=== PATIENT | female | born 1990 | race Caucasian/White ===

== ENCOUNTER 2020-10-21 11:21 | Emergency (ER) | payer SELFPAY ==
[2020-10-21 11:30] VITALS: BP 150/92; PULSE 97; RESP 16; TEMP 36.4; O2SAT 98
--- NOTE | 2020-10-21 13:19 | ED.ABDPAIN ---
HPI - Abdominal Pain General Chief Complaint: Skin/Abscess/Foreign Body Stated Complaint: Have something stuck in butt Source: patient Mode of arrival: ambulatory Limitations: no limitations History of Present Illness HPI narrative: Patient comes in with butt plug stuck in her rectum. She says she was going to use it and sat down and it went all of the way inside her. She comes in because she could not get this out at home. This happened just about 20 minutes prior to arrival. She now complains of severe pain in her rectum. Pain Consistency: constant Severity: severe (sharp pain) Quality: sharp Radiation: none Migration to: no migration Exacerbating factors: movement Relieving factors: nothing Associated symptoms: denies other symptoms Treatments prior to arrival: other (attempting to pull it out) Related Data Home Medications Medication Instructions Recorded Confirmed No Home Medications 10/21/20 10/21/20 Allergies Allergy/AdvReac Type Severity Reaction Status Date / Time cephalexin [From Keflex] Allergy Hives Verified 10/21/20 11:43 Review of Systems Constitutional: Constitutional: Reports no additional constitutional complaints Eyes: Eyes: Reports no additional eye complaints ENT: Reports system reviewed and no additional complaints, except as documented Cardiovascular: Cardiovascular: Reports no additional cardiovascular complaints Respiratory: Respiratory: Reports no additional respiratory complaints Gastrointestinal: Gastrointestinal: Reports no additional gastrointestinal complaints Genitourinary: Genitourinary: Reports no additional female genitourinary complaints Musculoskeletal: Musculoskeletal: Reports no additional musculoskeletal complaints Integumentary/Breasts: Skin/Breast: Reports system reviewed and no additional complaints, except as docu Neurologic: Reports system reviewed and no additional complaints, except as documented Psychiatric: Psychiatric: Reports no additional psychiatric complaints Endocrine: Endocrine: Reports no additional endocrine complaints Hematologic/Lymphatic: Hematologic/Lymphatic: Reports no additional hematologic/lymphatic complaints Allergic/Immunologic: Allergic/Immunologic: Reports no additional allergic/immunologic complaints ON LICENSE OF [facility] Past Medical History Medical History (Updated 10/22/20 @ 04:12 by Hamzah Goncalves MD) No significant past medical history Surgical History Surgical History (Updated 10/22/20 @ 03:49 by Hamzah Goncalves MD) No significant past surgical history Social History Social History (Updated 10/22/20 @ 03:51 by Hamzah Goncalves MD) Living arrangements: with friend(s) Gender identity (if verbalized by the patient): Female Sexual Orientation (if Verbalized by the Patient): Straight or Heterosexual Exam Const: Orientation/consciousness: patient oriented x3 HENMT: Head: normal to inspection Eyes: Conjunctivae: conjunctivae normal Neck: Neck: normal visual inspection Chest: Chest palpation & inspection: normal inspection of the chest Resp: Effort & Inspection: normal respiratory effort Cardio: Rate: regular rate Rhythm: regular rhythm GI: GI Palp: Yes Soft to palpation (nontender, she has butt plug present in anus. ) Skin: General skin exam: normal color Extrem: General: normal to inspection Psych: Appearance: grossly normal and well kempt Affect: normal affect Thought content: Yes Normal thought content present Course Course Emergency Course: Patient was placed in room number 3 by RN. She was given lidocaine jelly rectally 200mg. An attempt was made to remove the plug by grabbing it, after it appeared the lidocaine jelly was helping her to relax. I offered Versed IV to help her relax. She decided she was going to leave AMA, but then went in the bathroom to try to expel the plug. The RN was able to assist her, and the plug was removed. Vital Signs Vital signs: Vital Signs Temperature 36
[2020-10-21 14:15] VITALS: BP 140/80; PULSE 95; RESP 20; TEMP 36.7; O2SAT 100
--- NOTE | 2020-10-21 15:16 | PC.NURSE ---
1345 pt refused to lie in bed anymore pt went to BR to try and dislodge the anal plug 1400 pt call for nurse 1401 Dr Goncalves states nurse could assist pt on getting butt plug out 1405 butt plug at the anus and pt pushed and nurse pulled plug out
== END 2020-10-21 14:15 | disposition home or self-care (01) ==
LOC: CHSED 11:24
PROVIDERS: Emergency Provider Emergency Medicine
DX: T18.5XXA Foreign body in anus and rectum, initial encounter (principal)
CPT/HCPCS: 99282

== ENCOUNTER 2022-05-17 11:17 | Emergency (ER) | payer BC, SELFPAY ==
--- NOTE | ~2022-05-17 | XR_ITS ---
EXAMINATION: XR chest 1V portable INDICATION: Cough and shortness of breath TECHNIQUE: Portable AP chest at 1201 hours COMPARISON: None available FINDINGS: The lungs are free of acute opacities. No pleural effusion or pneumothorax. The cardiomedia stinal silhouette is normal. The visualized bones and soft tissues are unremarkable. IMPRESSION: 1. No acute cardiopulmonary abnormality. Reviewed, dictated and finalized at location A.
[2022-05-17 11:20] VITALS: BP 108/65; PULSE 70; RESP 16; TEMP 36.3; O2SAT 100
--- NOTE | 2022-05-17 12:07 | PC.NURSE ---
PT REFUSED ABG, ERP IS AWARE.
[2022-05-17 12:09] LABS: Basophils Absolute Auto 0.05 K/mm3 (0.00-0.10); Basophils Percent Auto 0.6 % (0.0-1.0); Eosinophils Absolute Auto 0.17 K/mm3 (0.02-0.50); Eosinophils Percent Auto 2.1 % (1.0-6.0); Hematocrit 40.6 % (35.0-49.0); Hemoglobin 13.4 g/dL (12.0-15.0); Immature Granulocyte Absolute 0.04 K/mm3 (0.00-0.00); Immature Granulocyte Percent A 0.5 % (0.0-0.0); Lymphocytes Absolute Auto 1.54 K/mm3 (1.10-4.50); Lymphocytes Percent Auto 18.6 % (18.0-42.0); Mean Corpuscular Hemoglobin 31.9 pg (27.0-31.0); Mean Corpuscular Volume 96.7 fL (78.0-102.0); Mean Platelet Volume 9.2 fl (9.2-11.8); Monocytes Absolute Auto 0.63 K/mm3 (0.10-0.90); Monocytes Percent Auto 7.6 % (2.0-11.0); Neutrophils Absolute Auto 5.9 K/mm3 (1.7-7.2); Neutrophils Percent Auto 70.6 % (50.0-70.0); Platelet Count Result 285 K/mm3 (150-420); White Blood Count 8.3 K/mm3 (4.8-10.8)
[2022-05-17] MEDS: KETOROLAC 30 MG/ML VIAL (*BKC) IM (12:10)
--- NOTE | 2022-05-17 12:18 | ED.URI ---
HPI - URI/Sore Throat General Chief Complaint: Upper Respiratory Infection Stated Complaint: COUGH, CONGESTION, BACK PAIN Time Seen by Provider: 05/17/22 11:21 Source: patient and RN notes reviewed Mode of arrival: ambulatory Limitations: no limitations History of Present Illness MD elicited complaint: cough, sore throat and other (right scapula pain, chest congestion and mild SOB) Pertinent past history: pneumonia and COPD Onset (ago): day(s) (3) Consistency: constant and progressively worsening Severity: moderate Pain scale (0-10): 6 Able to tolerate fluids by mouth: Yes Exacerbating factors: nothing Relieving factors: nothing Associated symptoms: cough and shortness of breath Related Data Home Medications Medication Instructions Recorded Confirmed clonidine HCl 0.1 mg tablet 0.1 mg PO DAILY 05/17/22 05/17/22 fluoxetine 20 mg capsule 20 mg PO DAILY 05/17/22 05/17/22 olanzapine 5 mg tablet 5 mg PO DAILY 05/17/22 05/17/22 Allergies Allergy/AdvReac Type Severity Reaction Status Date / Time cephalexin [From Keflex] Allergy Hives Verified 05/17/22 12:38 Review of Systems Review of Systems: All systems reviewed & are unremarkable except as noted in HPI and below Constitutional: Constitutional: Reports no additional constitutional complaints Eyes: Eyes: Reports no additional eye complaints ENT: Reports system reviewed and no additional complaints, except as documented Cardiovascular: Cardiovascular: Reports no additional cardiovascular complaints Respiratory: Respiratory: Reports chest congestion and Reports dyspnea Gastrointestinal: Gastrointestinal: Reports no additional gastrointestinal complaints Genitourinary: Genitourinary: Reports no additional female genitourinary complaints Musculoskeletal: Musculoskeletal: Reports no additional musculoskeletal complaints Integumentary/Breasts: Skin/Breast: Reports system reviewed and no additional complaints, except as docu Neurologic: Reports system reviewed and no additional complaints, except as documented Psychiatric: Psychiatric: Reports no additional psychiatric complaints Endocrine: Endocrine: Reports no additional endocrine complaints Hematologic/Lymphatic: Hematologic/Lymphatic: Reports no additional hematologic/lymphatic complaints Allergic/Immunologic: Allergic/Immunologic: Reports no additional allergic/immunologic complaints PMFSH Past Medical History Medical History Bronchitis No significant past medical history Surgical History Surgical History No significant past surgical history Social History Social History Gender identity (if verbalized by the patient): Female Sexual Orientation (if Verbalized by the Patient): Straight or Heterosexual Exam Const: General: no acute distress, alert and well nourished Nutritional Appearance: well nourished Orientation/consciousness: patient oriented x3 Limitations: no limitations HENMT: Head: normal to inspection Ears: external ears normal, TM's normal bilaterally and EAC's normal Face/Nose/Sinus: Normal external nose present, Normal nares present, normal facial exam and sinuses nontender Face and sinus: normal facial exam and sinuses nontender Mouth: Yes Normal oral and palatal mucosa present and Yes moist mucous membranes Teeth and gingiva: dentition normal Throat: posterior oropharynx normal Eyes: Conjunctivae: conjunctivae normal Pupils: Equal, round and reactive pupils present EOM: EOMs intact bilaterally Neck: Neck: normal visual inspection, no lymphadenopathy and no meningeal signs Chest: Chest palpation & inspection: normal inspection of the chest and tenderness (of right upper, inner scapula tenderness) Resp: Effort & Inspection: normal respiratory effort Auscultation: rhonchi and wheezes Cardio: Rate: regular ra
[2022-05-17 12:21] LABS: Alanine Aminotransferase 42 U/L (14-59); Albumin Level 4.1 g/dL (3.4-5.0); Alkaline Phosphatase 62 U/L (46-116); Anion Gap 8 mmol/L (8-16); Aspartate Amino Transferase 18 U/L (15-37); Bilirubin,Total 0.4 mg/dL (0.00-1.00); Blood Urea Nitrogen 13 mg/dL (7-18); Calcium 8.8 mg/dL (8.5-10.1); Carbon Dioxide 27 mmol/L (21-32); Chloride 104 mmol/L (98-108); Estimated CRCL calculation 75 ml/min; Estimated Glomerular Filt Rate > 60; Glucose 70 mg/dL (70-99); Osmolality Calculated 286 mOsm/kg (285-295); Potassium 3.8 mmol/L (3.5-5.1); SPREG INTERNAL CONTROL Positive; Serum Qual hCG Negative; Sodium 139 mmol/L (136-145); Total Protein 7.8 g/dL (6.4-8.2)
[2022-05-17 12:27] LABS: Appearance Urine Clear (Clear); Bilirubin Urine Negative (Negative); Blood Urine Negative (Negative); Glucose Urine UA Negative (Negative); Ketones Urine Negative (Negative); Leukocyte Esterase Ur Negative (Negative); Nitrate Urine Negative (Negative); Protein Urine Negative (Negative); Specific Grav Ur 1.025 (1.010-1.020); Urobilinogen Urine 0.2 mg/dL (0.2-1.0)
[2022-05-17 12:32] LABS: Add Urine Microscopic? NO; Color Urine Light Yellow (Yellow)
[2022-05-17 12:44] LABS: Influenza A QL RT-PCR Negative (Negative); Influenza B QL RT-PCR Negative (Negative); SARS-CoV-2 RNA PCR Negative (Negative)
[2022-05-17 12:45] VITALS: BP 100/61; PULSE 78; RESP 16; O2SAT 99
== END 2022-05-17 12:45 | disposition home or self-care (01) ==
PROVIDERS: Emergency Provider Emergency Medicine
DX: J40 Bronchitis, not specified as acute or chronic (principal); Z20.822 Contact with and (suspected) exposure to COVID-19
CPT/HCPCS: 36415; 71045; 80053; 81003; 83605; 84703; 85025; 87502; 96372; 99283; C9803; J1885; U0003; U0005

== ENCOUNTER 2022-07-15 11:30 | Emergency (ER) | payer BC, SELFPAY ==
--- NOTE | ~2022-07-15 | XR_ITS ---
XR abdomen/kub 1V 07/15/2022 16:33 Indication: Foreign body in rectal vault Procedure: KUB Comparison: No prior studies for comparison. Findings: There is a foreign body overlying the pelvis. Bowel gas pattern nonobstructive. No abnormal calcifications. There is an umbilical piercing. Impression: 1: Foreign body in the pelvis. Reviewed, dictated and finalized at location A. PRESIDENT COMPLIANCE Impression: 1: Foreign body in the pelvis.
--- NOTE | 2022-07-15 14:00 | PC.NURSE ---
Addendum entered by Judah Sheikh RN 07/15/22 16:08: 1410 pt returned to [facility], was outside in parking lot. did not leave. Original Note: pt left without being seen, pt has butt plug in rectum. no distress. sitting in lobby, legs crossed, in and out of lobby to go outside. at 1200 explained to pt extended wait related to all rooms occupied. at 1350 pt in window states she is not waiting any longer, several people has left. attempted to explain to pt rooms are full and have had multiple ambulance arrivals. pt stormed out of lobby.
[2022-07-15 15:11] VITALS: BP 114/71; PULSE 89; RESP 16; TEMP 36.9; O2SAT 99
--- NOTE | 2022-07-15 15:31 | ED.GENADULT ---
HPI - General Adult General Chief complaint: Unspecified Stated complaint: ANAL BUTT PLUG STUCK History of Present Illness HPI narrative: The patient is a 32-year-old woman was otherwise healthy, who has had a previous episode of in anal butt plug stuck in the anorectal vault on October 21, 2020, that she was able to defecate spontaneously during a visit to this emergency room. No subsequent episodes where the butt plug had gotten stuck. She now presents with a recurrent episode of a butt plug stuck in her rectum, insertion at 11:15 a.m. today, size of the butt plug is 38 mm x 80 mm and has base. She cannot feel it in the anal or rectal region. No abdominal pain. Related Data Home Medications Medication Instructions Recorded Confirmed fluoxetine 20 mg capsule 20 mg PO DAILY 05/17/22 07/15/22 olanzapine 5 mg tablet 5 mg PO DAILY 05/17/22 07/15/22 bupropion HCl 150 mg 24 hr tablet, 150 mg PO DAILY 07/15/22 07/15/22 extended release Allergies Allergy/AdvReac Type Severity Reaction Status Date / Time cephalexin [From Keflex] Allergy Hives Verified 07/15/22 15:33 Review of Systems Review of Systems: All systems reviewed & are unremarkable except as noted in HPI and below Constitutional: Constitutional: Reports no additional constitutional complaints, Denies anorexia, Denies body ache(s), Denies chills, Denies excessive sweating, Denies fatigue, Denies fever(s), Denies frequent falls, Denies headache(s), Denies malaise and Denies poor appetite Eyes: Eyes: Reports no additional eye complaints, Denies blurry vision, Denies change in vision, Denies irritation, Denies itchy eyes and Denies photophobia ENT: Reports system reviewed and no additional complaints, except as documented, Reports Normal hearing present, Denies change in voice, Denies dysphagia, Denies vertigo, Denies dizziness, Denies ear discharge, Denies headache(s), Denies hearing loss, Denies hoarseness, Denies nasal congestion, Denies neck pain, Denies sinus pressure, Denies sore throat and Denies throat swelling Cardiovascular: Cardiovascular: Reports no additional cardiovascular complaints, Denies chest pain, Denies syncope, Denies rapid heart rate, Denies irregular heart rhythm, Denies leg edema, Denies dyspnea and Denies slow heart rate Respiratory: Respiratory: Reports no additional respiratory complaints, Denies cough, Denies dyspnea, Denies stridor and Denies wheezing Gastrointestinal: Gastrointestinal: Reports no additional gastrointestinal complaints, Denies abdominal pain, Denies melena, Denies hematochezia, Denies dysphagia, Denies diarrhea, Denies nausea and Denies vomiting Genitourinary: Genitourinary: Denies hematuria, Denies urinary frequency, Denies dysuria, Denies flank pain and Denies urinary urgency Musculoskeletal: Musculoskeletal: Reports no additional musculoskeletal complaints, Denies abnormal gait, Denies back pain, Denies myalgias, Denies arthralgias, Denies joint swelling, Denies limited range of motion, Denies muscle cramps, Denies muscle weakness, Denies neck pain and Denies numbness Integumentary/Breasts: Skin/Breast: Reports system reviewed and no additional complaints, except as docu, Denies breast pain, Denies change in pigmentation, Denies pruritus, Denies erythema and Denies wounds Neurologic: Reports system reviewed and no additional complaints, except as documented, Reports Normal hearing present, Denies Abnormal speech present, Denies abnormal gait, Denies confusion, Denies vertigo, Denies dizziness, Denies syncope, Denies frequent falls, Denies headache(s), Denies focal weakness, Denies numbness and Denies paresthesias Psychiatric: Psychiatric: Reports no additional psychiatric complaints and Denies confusion Endocrine: Endocrine: Reports no additional endocrine complaints, Denies cold intolerance, Denies excessive sweating, Denies fatigue and Denies heat intolerance Hematologic/Lymphatic: Hematologic/Lymphatic: Reports no additional h
[2022-07-15] MEDS: NICOTINE (*PBKC) 14 MG PATCH 1 PATCH TRANSDERM (16:05)
[2022-07-15 16:11] LABS: Basophils Absolute Auto 0.06 K/mm3 (0.00-0.10); Basophils Percent Auto 0.7 % (0.0-1.0); Eosinophils Absolute Auto 0.48 K/mm3 (0.02-0.50); Eosinophils Percent Auto 5.5 % (1.0-6.0); Hematocrit 39.1 % (35.0-49.0); Hemoglobin 13.1 g/dL (12.0-15.0); Immature Granulocyte Absolute 0.02 K/mm3 (0.00-0.00); Immature Granulocyte Percent A 0.2 % (0.0-0.0); Lymphocytes Absolute Auto 2.41 K/mm3 (1.10-4.50); Lymphocytes Percent Auto 27.6 % (18.0-42.0); Mean Corpuscular HGB Conc 33.5 g/dL (32.0-36.0); Mean Corpuscular Hemoglobin 32.2 pg (27.0-31.0); Mean Corpuscular Volume 96.1 fL (78.0-102.0); Mean Platelet Volume 8.6 fl (9.2-11.8); Monocytes Absolute Auto 0.68 K/mm3 (0.10-0.90); Monocytes Percent Auto 7.8 % (2.0-11.0); Neutrophils Absolute Auto 5.1 K/mm3 (1.7-7.2); Neutrophils Percent Auto 58.2 % (50.0-70.0); Platelet Count Result 280 K/mm3 (150-420); Red Blood Count 4.07 M/mm3 (4.20-5.40); Red Cell Distribution Width 13.5 % (11.6-14.4); White Blood Count 8.7 K/mm3 (4.8-10.8)
[2022-07-15 16:17] LABS: Appearance Urine Clear (Clear); Bilirubin Urine Negative (Negative); Blood Urine 1+ (Negative); Glucose Urine UA Negative (Negative); Ketones Urine Negative (Negative); Leukocyte Esterase Ur Negative LEU/UL (Negative); Nitrate Urine Negative (Negative); Protein Urine Negative (Negative); Urobilinogen Urine 0.2 mg/dL (0.2-1.0)
[2022-07-15 16:20] LABS: Pregnancy On Board Control Positive; Urine Pregnancy Test Negative
[2022-07-15 16:24] LABS: Add Urine Microscopic? YES; Bacteria Urine 1+ /hpf; Color Urine Light Yellow (Yellow); RBC Urine 0-2 /hpf (0-2); Squamous Epithelial Cell Urine Few /hpf (Few); WBC Urine 0-3 /hpf (0-3)
[2022-07-15 16:27] LABS: Alanine Aminotransferase 11 U/L (14-59); Albumin Level 3.9 g/dL (3.4-5.0); Alkaline Phosphatase 65 U/L (46-116); Anion Gap 7 mmol/L (8-16); Aspartate Amino Transferase < 10 U/L (15-37); Bilirubin,Total 0.3 mg/dL (0.00-1.00); Blood Urea Nitrogen 12 mg/dL (7-18); Calcium 9.2 mg/dL (8.5-10.1); Carbon Dioxide 28 mmol/L (21-32); Chloride 106 mmol/L (98-108); Estimated CRCL calculation 59 ml/min; Estimated Glomerular Filt Rate > 60; Glucose 126 mg/dL (70-99); Osmolality Calculated 293 mOsm/kg (285-295); Potassium 4.5 mmol/L (3.5-5.1); Sodium 141 mmol/L (136-145); Total Protein 7.8 g/dL (6.4-8.2)
[2022-07-15 16:46] LABS: SARS-CoV-2 RNA PCR Negative (Negative)
[2022-07-15 16:53] VITALS: BP 113/76; PULSE 87; RESP 18; TEMP 36.8; O2SAT 99
== END 2022-07-15 16:59 | disposition short-term general hospital (02) ==
PROVIDERS: Emergency Provider Emergency Medicine
DX: T18.5XXA Foreign body in anus and rectum, initial encounter (principal); Z20.822 Contact with and (suspected) exposure to COVID-19
CPT/HCPCS: 36415; 74018; 80053; 81001; 81025; 85025; 99284; A9270; U0003; U0005

== ENCOUNTER 2024-01-25 09:44 | Outpatient (CLI) | payer OTHER, SELFPAY ==
--- NOTE | ~2024-01-25 | XR_ITS ---
XR wrist RT 2V Ordering provider: Barbara Cueto APRN History: . Right wrist pain, limited motion, no known injury . Comparison: August 08, 2018 FINDINGS: BONES: No acute fracture or dislocation. No definite scaphoid fracture. JOINT SPACES: Normal. SOFT TISSUES: Normal. IMPRESSION: No acute osseous abnormality right wrist. Reviewed, dictated and finalized at location A.
[2024-01-25 19:51] LABS: Alanine Aminotransferase 13 U/L (6-35); Albumin Level 4.6 g/dL (3.5-5.1); Alkaline Phosphatase 55 U/L (38-126); Anion Gap 11 mmol/L (4-12); Aspartate Amino Transferase 71 U/L (14-36); Bilirubin,Total 0.6 mg/dL (0.2-1.3); Blood Urea Nitrogen 16 mg/dL (7-17); Calcium 9.2 mg/dL (8.4-10.2); Carbon Dioxide 20 mmol/L (22-30); Chloride 106 mmol/L (98-107); Cholesterol 147 mg/dL (0-200); Estimated Glomerular Filt Rate > 60; Glucose 100 mg/dL (65-110); HDL Direct 43 mg/dL; Sodium 137 mmol/L (137-145); Triglycerides 59 mg/dL (<150); Uric Acid 4.1 mg/dL (2.5-7.5)
[2024-01-25 19:53] LABS: Hematocrit 41.2 % (37.0-47.0); Hemoglobin 13.2 g/dL (12.0-15.0); Mean Corpuscular Hemoglobin 33.2 pg (26-34); Mean Corpuscular Volume 103.8 fl (80-100); Mean Platelet Volume 10.1 fl (7.4-10.4); Platelet Count Result 231 k/mm3 (150-375); Red Blood Count 3.97 M/mm3 (4.2-5.4); Red Cell Distribution Width 12.4 % (11.5-14.5); White Blood Count 7.3 K/mm3 (4.5-10.0)
[2024-01-25 20:02] LABS: LDL Cholesterol Direct 91 mg/dL
[2024-01-25 20:09] LABS: Iron 68 ug/dL (37-170)
[2024-01-25 20:11] LABS: Percent Iron Saturation 20 % (20-50)
[2024-01-25 20:31] LABS: Free T4 Free Thyroxine 1.22 ng/mL (0.78-2.19)
[2024-01-25 20:39] LABS: Vitamin D 25 Hydroxy 29.5 ng/mL
[2024-01-25 20:56] LABS: Folic Acid 4.6 ng/mL (2.76->20)
== END 2024-01-25 09:45 | disposition home or self-care (01) ==
PROVIDERS: PCP Nurse Practitioner Adult Health; Visit Provider Nurse Practitioner Adult Health
DX: Z13.9 Encounter for screening, unspecified (principal); F32.A Depression, unspecified; M25.531 Pain in right wrist
CPT/HCPCS: 36415; 73100; 80053; 80061; 82306; 82607; 82728; 82746; 83540; 83550; 84439; 84443; 84550; 85027

== ENCOUNTER 2024-02-20 07:31 | Outpatient (CLI) | payer OTHER, SELFPAY ==
--- NOTE | ~2024-02-20 | MMUS_ITS ---
EXAMINATION: MM diagnostic radha BI w christy, US breast BI complete HISTORY: Palpable bilateral breast abnormalities TECHNIQUE: Additional 3-D tomosynthesis images of the breasts were performed and synthetic 2-D images were generated. CAD analysis was submitted and interpreted. High resolution bilateral complete breas t ultrasound was performed. COMPARISON: No prior studies for comparison. BREAST PARENCHYMAL COMPOSITION: Dense: The breasts are extremely dense, which lowers the sensitivity of mammography. FINDINGS: MAMMOGRAPHIC FINDINGS: There are subtle masses bilaterally which are obscured by dense fibroglandular tissue. No discrete ab normality in the areas of palpable concern are identified. There are no suspicious calcifications or architectural distortion. ULTRASOUND: Complete bilateral US of all 4 quadrants of the breasts and retroareolar region was reviewed. There a re multiple bilateral cysts in both breasts which appear simple. There are no suspicious masses in ei ther breast to suggest malignancy. IMPRESSION: 1. No evidence for malignancy in either breast. Benign cysts are identified in both breasts. 2. Routine yearly screening mammogram and regular clinical breast examination are recommended. BI-RADS Category 2: Benign finding(s). Reviewed, dictated and finalized at location B. IMPRESSION: 1. No evidence for malignancy in either breast. Benign cysts are identified in both breasts. 2. Routine yearly screening mammogram and regular clinical breast examination a re recommended. BI-RADS Category 2: Benign finding(s).
== END 2024-02-20 07:32 | disposition home or self-care (01) ==
LOC: CHSIMG 07:33
PROVIDERS: PCP Nurse Practitioner Adult Health; Visit Provider Nurse Practitioner Adult Health
DX: N63.11 Unspecified lump in the right breast, upper outer quadrant (principal)
CPT/HCPCS: 76641; 77062; 77066; G0279

== ENCOUNTER 2024-04-22 11:50 | Outpatient (CLI) | payer OTHER, SELFPAY ==
--- NOTE | ~2024-04-22 | XR_ITS ---
XR chest 2V Ordering provider: Barbara Cueto APRN History: 34 years Female with . R05.9 - Cough, unspecified . Comparison: May 17, 2022 FINDINGS: MEDIASTINUM: The cardiac silhouette is not enlarged. LUNGS: No infiltrates, effusions or pneumothorax. OTHER: No free air under the diaphragm. IMPRESSION: No acute cardiopulmonary pathology. Reviewed, dictated and finalized at location A.
== END 2024-04-22 11:51 | disposition home or self-care (01) ==
LOC: ANHBWCIMG 11:52
PROVIDERS: PCP Nurse Practitioner Adult Health; Visit Provider Nurse Practitioner Adult Health
DX: R05.9 Cough, unspecified (principal)
CPT/HCPCS: 71046